=== PATIENT | female | born 1940 | race Caucasian/White ===

== ENCOUNTER 2020-08-31 15:02 | Emergency (ER) | payer MEDICARE, OTHER ==
[2020-08-31] MEDS ORDERED: BAMLANIVIMAB 700 MG in SODIUM CHLORIDE 250 ML IVPB ONE (15:23)
[2020-08-31 15:28] VITALS: BMI 27.2
[2020-08-31 15:57] LABS: HEMATOCRIT 33.9 % (32.4-45.2); HEMOGLOBIN 11.2 GM/dL (10.7-15.3); MCH 29.7 pg (25.7-33.7); MCHC 33.1 g/dl (32.0-36.0); MEAN CELL VOLUME 89.9 fl (80-96); MEAN PLT VOLUME 7.7 fl (7.5-11.1); PLATELET COUNT 176 K/MM3 (134-434); RBC 3.77 M/mm3 (3.60-5.2); RDW 15.1 % (11.6-15.6); WHITE BLOOD COUNT 2.3 K/mm3 (4.0-10.0)
[2020-08-31 16:21] LABS: POTASSIUM 4.1 mmol/L (3.5-5.1)
[2020-08-31 16:22] LABS: CALCIUM 8.2 mg/dL (8.5-10.1)
[2020-08-31 16:23] LABS: BLOOD UREA NITROGEN 9.2 mg/dL (7-18)
[2020-08-31 16:26] LABS: CREATININE 0.5 mg/dL (0.55-1.3)
[2020-08-31 16:27] VITALS: TEMP 98.5
[2020-08-31 18:50] VITALS: BP 122/68; PULSE 89
== END 2020-08-31 18:50 | disposition home or self-care (01) ==
LOC: JCOVINFU 15:02 → JER 15:02 → JCOVINFU 18:50
DX: U07.1 COVID-19 (principal)
CPT/HCPCS: 36415; 71046-TC-FY; 80048; 85027; 99284-25; M0239; Q0239